=== PATIENT | female | born 1935 | race Caucasian/White ===

== ENCOUNTER 2020-04-07 18:02 | Inpatient (IN) | payer OTHER, MEDICAID ==
[~2020-04-07] VITALS: Ht 165.1 cm; Wt 75.9 kg
--- NOTE | 2020-04-07 18:18 | NUR ---
BIB RA 85 C/O CHEST PAIN. 12 LEAD EKG DONE. PLACED IS ON A MONITOR. PATIENT IS AWAKE AND ALERT. IV ALREADY IN PLACE.
[2020-04-07 18:40] LABS: BASOPHILS % (AUTO) 0.5 % (0.0-2.0); EOSINOPHILS # (AUTO) 0.3 K/uL (0.0-0.7); HEMATOCRIT 32.3 % (31.2-41.9); HEMOGLOBIN 10.7 g/dL (10.9-14.3); LYMPHOCYTES # (AUTO) 1.4 K/uL (20.0-40.0); LYMPHOCYTES % (AUTO) 19.8 % (20.5-51.5); MEAN CORPUSCULAR HEMOGLOBIN 29.7 uug (24.7-32.8); MEAN CORPUSCULAR HGB CONC 33 g/dL (32.3-35.6); MEAN CORPUSCULAR VOLUME 89.5 fL (75.5-95.3); MONOCYTES # (AUTO) 0.8 K/uL (2.0-10.0); MONOCYTES % (AUTO) 11.2 % (0.0-11.0); NEUTROPHILS # (AUTO) 4.4 K/uL (1.8-8.9); NEUTROPHILS % (AUTO) 64.5 % (38.5-71.5); PLATELET COUNT (AUTO) 207 K/uL (179-408); RED BLOOD CELL COUNT(AUTO) 3.61 MIL/uL (3.63-4.92); WHITE BLOOD COUNT (AUTO) 6.9 K/uL (3.8-11.8)
[2020-04-07 18:51] LABS: CARBON DIOXIDE 23 mmol/L (21-32); CHLORIDE 104 mmol/L (98-107); CREATININE 1.5 mg/dL (0.6-1.3); GLUCOSE 112 mg/dL (74-106); UREA NITROGEN, BLOOD 37 mg/dL (7-18)
[2020-04-07] MEDS ORDERED: DOCU100T2 PO (19:01)
[2020-04-07] MEDS ORDERED: ACET-73 PO (19:01)
[2020-04-07] MEDS ORDERED: ESCI5TAB PO (19:01)
[2020-04-07] MEDS ORDERED: BISA10SU61 RC (19:01)
[2020-04-07] MEDS ORDERED: LISI40TA4 PO (19:01)
[2020-04-07] MEDS ORDERED: ROPI0.252 PO (19:01)
[2020-04-07] MEDS ORDERED: ISOS30TA6 PO (19:01)
[2020-04-07] MEDS ORDERED: SENN-261 PO (19:01)
[2020-04-07] MEDS ORDERED: METO50TA16 PO (19:01)
[2020-04-07] MEDS ORDERED: FERR325T30 PO (19:01)
[2020-04-07] MEDS ORDERED: TRAZ-182 PO (19:01)
[2020-04-07] MEDS ORDERED: POLY17PO4 PO (19:01)
[2020-04-07] MEDS ORDERED: DICL20GE TOP (19:01)
[2020-04-07] MEDS ORDERED: ACET1TAB23 PO (19:01)
[2020-04-07] MEDS ORDERED: CARB-93 PO ×2 (19:01)
[2020-04-07] MEDS ORDERED: MELA5TAB PO (19:01)
[2020-04-07] MEDS ORDERED: BUSP5TAB3 PO (19:01)
[2020-04-07] MEDS ORDERED: ATOR10TA PO (19:01)
[2020-04-07] MEDS ORDERED: CLON1PAT TD (19:01)
[2020-04-07] MEDS ORDERED: GABA300C PO (19:01)
[2020-04-07] MEDS ORDERED: ONDA4TAB5 PO (19:01)
[2020-04-07] MEDS ORDERED: CLON0.1T PO (19:01)
[2020-04-07] MEDS ORDERED: ASPI-866 PO (19:01)
[2020-04-07] MEDS ORDERED: AMLO10TA7 PO (19:01)
[2020-04-07] MEDS ORDERED: CALC500T13 PO (19:01)
[2020-04-07] MEDS ORDERED: METO-295 PO (19:01)
--- NOTE | 2020-04-07 19:07 | NUR ---
HAND OFF REPORT GIVEN TO TOMMIE ROY
[2020-04-07] MEDS ORDERED: IV NORMAL SALINE 250 ML IV ONE (19:29)
[2020-04-07] MEDS ORDERED: SWABABLE VALVE TRANSFER SET EA MC ONE (19:29)
[2020-04-07] MEDS ORDERED: IOHEXOL 350 100 ML INFUS..BTL ONE (19:29)
--- NOTE | 2020-04-07 21:20 | NUR ---
Patient requesting to go AMA. Would like to be discharge back to [facility]..
--- NOTE | 2020-04-07 21:28 | NUR ---
Called [facility] for transport back to [facility]. ETA is 45mins.
--- NOTE | 2020-04-07 22:08 | NUR ---
Patient requesting to be admitted now. Dr Cooper aware.
--- NOTE | 2020-04-07 22:25 | NUR ---
Paged DR Miller. Waiting for call back.
--- NOTE | 2020-04-07 22:35 | NUR ---
Dr Addison called back. Requesting Epic panel to admit patient. Paged [facility]. Waiting for Dr Blair to call back, showroom salesperson for [facility].
--- NOTE | 2020-04-07 22:44 | NUR ---
Dr Cooper speaking with Dr Blair.
[2020-04-07] MEDS ORDERED: NITROGLYCERIN OINT 1 GM PACKET TP ONE ×2 (22:59→23:00)
[2020-04-07] MEDS ORDERED: ASPIRIN 81 MG TAB.CHEW ONE (22:59)
[2020-04-07] MEDS ORDERED: ASPIRIN 81 MG TAB.CHEW PO ONE (23:00)
--- NOTE | 2020-04-07 23:00 | NUR ---
Transfered patient to 3rd floor Tele via gurny with no distress noted.
--- NOTE | 2020-04-07 23:06 | NUR ---
Patient arrived from the ED via gurney. No s/s of distress noted at this time. Patient denies SOB and chest pain. personnel monitor is on. Bed is low and locked. Safety measures initiated and will continue to monitor.
[2020-04-08] MEDS ORDERED: ACETAMINOPHEN 325 MG TABLET PO PRN
[2020-04-08] MEDS ORDERED: ZOLPIDEM 5 MG TABLET PO PRN
[2020-04-08] MEDS ORDERED: ONDANSETRON 4 MG/2 ML VIAL IV PRN
[2020-04-08 01:08] VITALS: BP 155/60
[2020-04-08 05:28] VITALS: BP 192/83
[2020-04-08] MEDS: hydrALAZINE HCL 25 MG TABLET PO PRN ×2 (05:30→11:22)
[2020-04-08] MEDS: PANTOPRAZOLE SODIUM 40 MG TABLET.DR PO SCH (06:07)
[2020-04-08 06:17] LABS: BASOPHILS % (AUTO) 0.5 % (0.0-2.0); EOSINOPHILS # (AUTO) 0.3 K/uL (0.0-0.7); HEMATOCRIT 34.1 % (31.2-41.9); HEMOGLOBIN 11.6 g/dL (10.9-14.3); LYMPHOCYTES # (AUTO) 1.3 K/uL (20.0-40.0); LYMPHOCYTES % (AUTO) 16.8 % (20.5-51.5); MEAN CORPUSCULAR HEMOGLOBIN 30.1 uug (24.7-32.8); MEAN CORPUSCULAR HGB CONC 34 g/dL (32.3-35.6); MEAN CORPUSCULAR VOLUME 88.4 fL (75.5-95.3); MONOCYTES # (AUTO) 0.8 K/uL (2.0-10.0); MONOCYTES % (AUTO) 9.7 % (0.0-11.0); NEUTROPHILS # (AUTO) 5.4 K/uL (1.8-8.9); PLATELET COUNT (AUTO) 218 K/uL (179-408); RED BLOOD CELL COUNT(AUTO) 3.85 MIL/uL (3.63-4.92); WHITE BLOOD COUNT (AUTO) 7.8 K/uL (3.8-11.8)
[2020-04-08 06:39] VITALS: BP 176/76
[2020-04-08 06:56] LABS: ALANINE AMINOTRANSFERASE 14 U/L (14-59); ALKALINE PHOSPHATASE 68 U/L (50-136); ASPARTATE AMINOTRANSFERASE 21 U/L (15-37); BILIRUBIN,TOTAL 0.2 mg/dL (0.2-1.0); CARBON DIOXIDE 27 mmol/L (21-32); CHLORIDE 105 mmol/L (98-107); CHOLESTEROL 154 mg/dL (<200); CREATININE 1.6 mg/dL (0.6-1.3); GLUCOSE 99 mg/dL (74-106); HDL CHOLESTEROL 57 mg/dL (40-60); MAGNESIUM 2.2 mg/dL (1.8-2.4); PHOSPHOROUS 4.7 mg/dL (2.5-4.9); POTASSIUM 4.2 mmol/L (3.5-5.1); TOTAL PROTEIN, SERUM 7.3 g/dL (6.4-8.2); TRIGLYCERIDES 142 MG/DL (30-150); UREA NITROGEN, BLOOD 36 mg/dL (7-18)
--- NOTE | 2020-04-08 08:00 | NUR ---
received pt. resting in bed alert oriented x3 on room air saturating well. IV in L Forearm 20 gauge intact patent saline lock. safety measures in place. call light within reach. will continue to monitor pt.
[2020-04-08] MEDS: AMLODIPINE 10 MG TABLET PO SCH (08:35)
[2020-04-08] MEDS: METOPROLOL TARTRATE 50 MG TABLET PO SCH ×2 (08:35→20:37)
[2020-04-08] MEDS ORDERED: BISACODYL 10 MG SUPP.RECT RC PRN (10:30)
[2020-04-08] MEDS ORDERED: ONDANSETRON HCL 4 MG TABLET PO PRN (10:30)
[2020-04-08] MEDS ORDERED: CALCIUM CARBONATE 500 MG TAB.CHEW PO PRN (10:30)
[2020-04-08 11:16] VITALS: BP 160/69
[2020-04-08] MEDS: busPIRone 5 MG TABLET PO SCH ×2 (12:08→16:20)
[2020-04-08] MEDS: CARBIDOPA/LEVODOPA 25-100MG TABLET PO SCH ×2 (12:08→16:19)
[2020-04-08] MEDS ORDERED: HYDR50TA68 PO (15:04)
[2020-04-08 15:50] VITALS: BP 179/90
[2020-04-08] MEDS: CLONIDINE HCL 0.1 MG TABLET PO PRN ×2 (15:50→21:39)
[2020-04-08] MEDS: ropiniROLE 1 MG TABLET PO SCH (16:20)
[2020-04-08] MEDS: ESCITALOPRAM OXALATE 10 MG TABLET PO SCH (16:20)
[2020-04-08] MEDS ORDERED: SENNOSIDES 1 TABLET PO PRN (17:00)
--- NOTE | 2020-04-08 19:23 | NUR ---
pt. will be discharged back to [facility]. IV removed. ID band removed. all discharge papers printed and given to PM nurse. belongings completed. all belongings with pt. gave report to RN at [facility] named martin who is expecting patient.
[2020-04-08] MEDS: hydrALAZINE HCL 50 MG TABLET PO SCH (20:36)
[2020-04-08 20:59] VITALS: BP 185/70
[2020-04-08] MEDS ORDERED: ATORVASTATIN 10 MG TABLET PO SCH (21:00)
[2020-04-08] MEDS ORDERED: GABAPENTIN 300 MG CAPSULE PO SCH (21:00)
[2020-04-08] MEDS ORDERED: TRAZODONE 50 MG TABLET PO SCH (21:00)
--- NOTE | 2020-04-08 23:18 | NUR ---
nd let them know about patient's BP and refused to take patient's back if still BP elevated. Clonidine 0.1 given. Discharge cancelled. Possible d/c in am. latest BP 147/72 HR 66. Patient sleeping.Will monitor patient. Addendum: 04/09/20 at 0640 by KATE MILIAN RN nursing notes not completed. Will redo another nursing notes.
[2020-04-09 05:21] VITALS: BP 196/80
[2020-04-09] MEDS: CLONIDINE HCL 0.1 MG TABLET PO PRN (05:26)
--- NOTE | 2020-04-09 05:37 | NUR ---
Awake alert and oriented x 2-3 . forgetful at times. Patient to be discharge to [facility] Awaiting for ambulance. BP 205/91 HR75 resp18 pulse ox 96% Afebrile. All due meds given as scheduled. All BP meds given. Will monitor patient's BP. Ambulance came and about to pick her up but BP still high. BP rechecked after an hour BP 180/83 HR 70. [facility] notified of patient's BP. Refused to take patient if BP still high. Clonidine 0.1 mg given. latest BP taken @ 2200 was 147/72. HR 66. Patient asymptomatic.Patient slept all night. 4am BP 196/80 HR 57 Clonidine 0.1 mg given @ 0530 Will monitor patient.
[2020-04-09] MEDS: PANTOPRAZOLE SODIUM 40 MG TABLET.DR PO SCH (06:21)
--- NOTE | 2020-04-09 06:27 | NUR ---
End of shift notes: Slept well most of the shift. Incontinent of urine x2. Kept clean and dry. No acute distress noted. Latest BP 189/70 HR 57. Will monitor patient. No complaints presented. Will monitor patient's BP. All needs attended and met.
[2020-04-09 08:00] VITALS: BP 145/60
--- NOTE | 2020-04-09 08:00 | NUR ---
received pt. resting in bed alert oriented x3 on room air saturating well. pt. denies pain/ discomfort. pt. denies SOB/ difficulty breathing. IV in L Forearm 20 gauge intact patent saline lock. safety measures in place. call light within reach. will continue to monitor pt.
[2020-04-09] MEDS: ropiniROLE 1 MG TABLET PO SCH (08:38)
[2020-04-09] MEDS: busPIRone 5 MG TABLET PO SCH (08:38)
[2020-04-09] MEDS: ESCITALOPRAM OXALATE 10 MG TABLET PO SCH (08:39)
[2020-04-09] MEDS: hydrALAZINE HCL 50 MG TABLET PO SCH (08:44)
[2020-04-09] MEDS: METOPROLOL TARTRATE 50 MG TABLET PO SCH (08:48)
[2020-04-09] MEDS: AMLODIPINE 10 MG TABLET PO SCH (08:48)
[2020-04-09 09:00] VITALS: BP 124/59
[2020-04-09] MEDS ORDERED: ISOSORBIDE MONONITRATE 30 MG TAB.SR.24H PO SCH (09:00)
[2020-04-09] MEDS ORDERED: ASPIRIN EC 81 MG TABLET.DR PO SCH (09:00)
[2020-04-09] MEDS ORDERED: CARBIDOPA/LEVODOPA 25-100MG TABLET PO SCH ×2 (09:00→12:30)
[2020-04-09] MEDS ORDERED: FERROUS SULFATE 325 MG TABEC PO SCH (09:00)
--- NOTE | 2020-04-09 09:26 | NUR ---
pt blood pressure stable BP at 145/60 HR 83 before giving AM BP medications. Reported to Dr. Alicea who stated it is okay to continue discharge. Repair Specialist Renée aware and okayed to give report to [facility]. Spoke to charge nurse Sarahi for report at [facility]. Awaiting transportation through pt.'s insurance according to case management director. pt. is stable and awaiting discharge.
--- NOTE | 2020-04-09 10:26 | NUR ---
pt. getting discharged back to [facility] Bp stable at 115/57. 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 IV removed. Id band removed. All belongings with pt.
[2020-04-09 10:28] VITALS: BP 115/57
[2020-04-09 15:00] VITALS: BP 117/50
== END 2020-04-09 10:30 | DRG 391 ==
LOC: ER 18:05 → TELE3 23:02
PROVIDERS: ADMIT Hospitalist; ATTEND Hospitalist
DX: K21.9 Gastro-esophageal reflux disease without esophagitis (principal); N17.0 Acute kidney failure with tubular necrosis; J98.11 Atelectasis; I25.10 Atherosclerotic heart disease of native coronary artery without angina pectoris; Z95.5 Presence of coronary angioplasty implant and graft; Z96.643 Presence of artificial hip joint, bilateral; G20 Parkinson's disease; I12.9 Hypertensive chronic kidney disease with stage 1 through stage 4 chronic kidney disease, or unspecified chronic kidney disease; N18.9 Chronic kidney disease, unspecified; Z99.3 Dependence on wheelchair; N28.1 Cyst of kidney, acquired; K76.89 Other specified diseases of liver; K57.30 Diverticulosis of large intestine without perforation or abscess without bleeding; F32.9 Major depressive disorder, single episode, unspecified; Z79.82 Long term (current) use of aspirin; D63.1 Anemia in chronic kidney disease
CPT/HCPCS: 36415; 70030-TC; 71045; 71275; 83735; 84100; 85025; 93005; 93307; A4663; G0378; J7050; Q9967